=== PATIENT | female | born 1975 | race Caucasian/White ===

== ENCOUNTER 2016-04-25 07:54 | Emergency (ER) | payer OTHER ==
[~2016-04-25] VITALS: Ht 170.2 cm; Wt 61.3 kg
[~2016-04-25 07:54] MED LIST: AMBIEN10 MG PO; AMITRIPTYLINE H25 MG PO; ATIVAN1 MG PO; CIPRO500 MG PO; EFFEXOR25 MG PO; EFFEXOR75 MG PO; FIORICET,ESG1 TABLET PO; FLAGYL500 MG PO; GEODON60 MG PO; IBUPROFEN600 MG PO; INDERAL PO; KLONOPIN; KLONOPIN1 MG PO; MOTRIN600 MG PO; MOTRIN800 MG PO; NOHOMEMEDS; NORCO 5/3251 TABLET PO; PAXIL30 MG PO; PERCOCET 5/31 TABLET PO; PROMETHAZINE HC25 M1 PO; PROPRANOLOL HCL20 MG PO; SKELAXIN800 MG PO; TOPAMAX25 MG PO; WELLBUTRIN PO; WELLBUTRIN SR150 MG PO; XANAX0.5 MG PO; XANAX1 MG PO; ZANAFLEX4 MG PO; ZOFRAN4 MG PO; [UNRECOGNIZED DRUG - OTHER]; [UNRECOGNIZED DRUG - OTHER] PO
[2016-04-25] MEDS ORDERED: HYDROCODON-ACE1 EA12 PO (08:11)
[2016-04-25] MEDS ORDERED: XANAX1 MG PO (08:14)
[2016-04-25] MEDS ORDERED: NAPROXEN500 MG PO (08:54)
[2016-04-25] MEDS ORDERED: FLEXERIL10 MG PO (08:54)
[2016-04-25 09:02] VITALS: BP 130/85
== END 2016-04-25 09:02 | disposition home or self-care (01) ==
LOC: EME 07:54
DX: S16.1XXA Strain of muscle, fascia and tendon at neck level, initial encounter (principal); R51 Headache
CPT/HCPCS: 70450; 99281; 99283; J1885

== ENCOUNTER 2016-10-07 15:55 | Emergency (ER) | payer OTHER ==
[~2016-10-07] VITALS: Ht 167.6 cm; Wt 59.6 kg
[~2016-10-07 15:55] MED LIST changes: +FLEXERIL10 MG PO; +HYDROCODON-ACE1 EA12 PO; +NAPROXEN500 MG PO
[2016-10-07 16:22] VITALS: BP 131/80
== END 2016-10-07 19:26 | disposition left against medical advice (07) ==
LOC: EME 15:55
DX: R51 Headache (principal); Z53.21 Procedure and treatment not carried out due to patient leaving prior to being seen by health care provider